=== PATIENT | female | born 2000 | race Caucasian/White ===

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

== ENCOUNTER 2019-07-18 19:25 | Emergency (ER) | payer MEDICAID ==
--- NOTE | 2019-07-18 20:23 | EDM.PDOC ---
ED HPI GENERAL MEDICAL PROBLEM - General Chief Complaint: [employer] Problem Stated Complaint: 16wks pg vaginal bleeding Time Seen by Provider: 07/18/19 19:50 Source of Information: Reports: Patient, RN Notes Reviewed History Limitations: Reports: No Limitations - History of Present Illness INITIAL COMMENTS - FREE TEXT/NARRATIVE: Patient is a 18-year-old female who presents to the ED for the evaluation of vaginal bleeding. Patient notes that she is 16 weeks , she is a . Her [employer] is Dr. Cervantes. Patient notes that she had some light vaginal bleeding starting yesterday morning, she states that she wear very light pad for this. The bleeding seemed to stop the day, so she took the pad off, she states that she went to the bathroom again, she had a little bit more blood with some lumpy type material with it. Patient notes she is having some bilateral flank type pain, and upper rib cage pain. Patient does have chronic low back pain due to scoliosis, and she does not believe this is worse. She does note some mild pelvic cramping. She did call an OB nurse, and they directed her to come to the ER to check be checked out, patient notes that her blood type is O-. She notes she has had frequent UTIs in the past, and denies any dysuria, frequency or urgency. Middle Abdomen Pain Score (Numeric/FACES): 6 - Related Data Allergies Allergy/AdvReac Type Severity Reaction Status Date / Time lavender (Lavandula Allergy Swelling Verified 03/29/18 18:23 angustifolia) Home Meds: Home Meds Mv-Min/Iron/Folic/Calcium/Vitk [Women's Daily Formula Tablet] 1 tab PO DAILY [History] PNV95/Ferrous Fumarate/FA [ Tablet] 1 tab PO DAILY 07/18/19 [History] Past Medical History - Past Health History Medical/Surgical History: Denies Medical/Surgical History Musculoskeletal History: Reports: Other (See Below) Other Musculoskeletal History: scoliosis Psychiatric History: Reports: Anxiety, Depression Social & Family History - Tobacco Use Smoking Status *Q: Current Every Day Smoker Years of Tobacco use: 2 Packs/Tins Daily: 0.1 - Caffeine Use Caffeine Use: Reports: Coffee, Soda, Tea - Recreational Drug Use Recreational Drug Use: No - Living Situation & Occupation Living situation: Reports: Single, Alone Occupation: Student ([employer], part-time) ED ROS GENERAL - Review of Systems Review Of Systems: See Below Constitutional: Denies: Fever, Chills HEENT: Reports: No Symptoms Respiratory: Denies: Shortness of Breath Cardiovascular: Denies: Chest Pain Endocrine: Reports: No Symptoms GI/Abdominal: Reports: Abdominal Pain (bilateral flank pain, low pelvic pain). Denies: Constipation, Diarrhea, Nausea, Vomiting : Reports: Flank Pain (bilateral), Other (vaginal bleeding). Denies: Dysuria , Frequency, Urgency Musculoskeletal: Reports: Back Pain (chronic lower back pain) Skin: Reports: No Symptoms Neurological: Reports: No Symptoms Psychiatric: Reports: No Symptoms Hematologic/Lymphatic: Reports: No Symptoms Immunologic: Reports: No Symptoms ED EXAM - Physical Exam Exam: See Below Exam Limited By: No Limitations General Appearance: Alert, WD/WN, No Apparent Distress Head: Atraumatic, Normocephalic Neck: Normal Inspection Respiratory/Chest: No Respiratory Distress, Lungs Clear, Normal Breath Sounds, No Accessory Muscle Use, Chest Non-Tender Cardiovascular: Normal Peripheral Pulses, Regular Rate, Rhythm, No Murmur GI/Abdominal Exam: Normal Bowel Sounds, Soft, Non-Tender, No Distention, No Mass (Female) Exam: Normal Bimanual Exam, Normal External Exam, Normal Speculum Exam, Vaginal Discharge (dark brown slightly clumpy discharge noted). No: Cervical Dilatation, Cervix Motion Tenderness, Uterine Tenderness Heart Tones: Not [place] (checked with doppler, could not appreciate heart tones.) Movement: Not Appreciated Extremities: Normal Inspection, Normal Capillary Refill Neurological: Alert, Oriented, Normal Cognition, No Motor/Sensory Deficits Psychiatric: Normal Affect, Normal Mood Skin Exam: Warm, Dry, Intact, Normal Color, No Rash Course - Vital Signs Last Recorded V/S: Last Vital Signs Temp 97.8 F 07/18/19 19:49 Pulse 69 07/18/19 19:49 Resp 20 07/18/19 19:49 BP 107/62 07/18/19 19:49 Pulse Ox 99 07/18/19 19:49 - Orders/Labs/Meds Orders: Active Orders 24 hr Category Date Time Status OB Transvaginal [US] Stat Exams 07/18/19 20:11 Taken Labs: Laboratory Tests 07/18/19 07/18/19 Range/Units 21:15 22:25 Urine Color Yellow (Yellow) Urine Appearance Clear (Clear) Urine pH 7.5 (5.0-8.0) Ur Specific [place] 1.020 (1.005-1.030) Urine Protein Negative (Negative) Urine Glucose (UA) Negative (Negative) Urine Ketones Negative (Negative) Urine Occult Blood Trace-intact H (Negative) Urine Nitrite Negative (Negative) Urine Bilirubin Negative (Negative) Urine Urobilinogen 0.2 (0.2-1.0) Ur Leukocyte Esterase Negative (Negative) Urine RBC 0-5 (0-5) /hpf Urine WBC 0-5 (0-5) /hpf Ur Squamous Epith Cells 0-5 (0-5) /hpf Urine Bacteria Occasional (FEW) /hpf Urine Mucus Not seen (FEW) /hpf Blood Type A POSITIVE Rhogam Indicated No - Re-Assessments/Exams Free Text/Narrative Re-Assessment/Exam: 07/18/19 20:24 Patient presents to the ED for evaluation of vaginal bleeding in . She is 16 weeks , did order ultrasound to check on status of the baby, and a urinalysis to make sure there is no a UTI causing some bleeding. Patient is O-, we will assess the need for RhoGAM should the ultrasound results come unfavorable. 07/18/19 22:09 Patient's ultrasound is done, and demonstrates a single intrauterine embryo, with absent cardiac activity, the estimated gestational age at this ultrasound is 8 weeks 0 days. It appears that the patient has had demise. The patient did have an ultrasound prior to this, that did show heart activity. I did call Dr. Davila, our OB on-call, he recommends the patient has 3 options, await natural passage, do Cytotec, or have a D&C if she is having a lot of bleeding. Since she is not having a lot of bleeding, patient is opting to do the awaiting natural passage. Since the patient stated her blood type was O-, I will order a Rhogam workup, he did recommend full dose Rhogam at this time. I did recommend patient talked with Dr. Cervantes tomorrow, regarding her options further from here. 07/18/19 23:19 Upon the completion of the Rhogam Workup, patient's blood type is actually A+, and not O-. She will not need Rhogam at tonight's visit. Patient did have questions and concerns regarding possible viable without the incidence of a heartbeat, I cannot answer her questions efficiently, directed her to follow up with Dr. Cervantes tomorrow. I stated that because she had a ultrasound with a strong heartbeat previous to this, and now has a ultrasound without a heartbeat, it is more unlikely that there is a viable but again told her to follow-up with Dr. Cervantes for more information. Departure - Departure Time of Disposition: 22:16 Disposition: Home, Self-Care 01 Condition: Fair Clinical Impression: Incomplete - Discharge Information *PRESCRIPTION DRUG MONITORING PROGRAM REVIEWED*: No *COPY OF PRESCRIPTION DRUG MONITORING REPORT IN PATIENT RIGOBERTO: No Instructions: Miscarriage, [id number] Referrals: Gwen Cervantes MD [Primary Care Provider] - Forms: ED Department Discharge Additional Instructions: You were evaluated in the ER [facility] regarding her vaginal bleeding during . Unfortunately it looks as if your baby had no heart rate via ultrasound, and this is consistent with demise at this time. The [employer] on-call was consulted on your case, you have decided to do some watchful waiting and let nature take its course to help pass the tissue. Recommend that you follow up with Dr. Cervantes, regarding further options, if letting nature take it's course is not working for you. You were given a copy of your ultrasound results. Again I'm sorry for your loss, please return to the ED at any time if your bleeding, pelvic cramping, worsen, or if you get dizzy or lightheaded due to the vaginal bleeding. For your information, your blood type is actually A+. You should not need Rhogam at anytime in any in the future. - My Orders Last 24 Hours: My Active Orders 07/18/19 20:11 OB Transvaginal [US] Stat - Assessment/Plan Last 24 Hours: My Active Orders 07/18/19 20:11 OB Transvaginal [US] Stat
--- NOTE | 2019-07-19 06:54 | US ---
First trimester obstetrical ultrasound: Multiple real-time images were obtained transvaginally. Comparison: No prior study for current . Dates: Current ultrasound: SUZY 02/27/20, gestational age 8 weeks 0 days Single intrauterine gestation is seen. Amniotic fluid volume is normal. Embryo is seen but no heart activity is identified. Maternal ovaries are identified. Left ovary shows a slightly complex cyst measuring 2.2 cm. Measurements: [place]-rump length: 1.54 cm - 8 weeks 0 days Impression: 1. Single intrauterine gestation. Dates as noted above. 2. No heart activity is seen which should be visualized at this gestational age. Findings are felt compatible with nonviable . Diagnostic code #5 I agree with preliminary report from [facility], finalized on 07/18/19, 10:36 PM Central Time
== END 2019-07-18 23:24 | disposition home or self-care (01) ==
LOC: JD.ED 19:25
DX: O03.4 Incomplete spontaneous abortion without complication (principal); F17.210 Nicotine dependence, cigarettes, uncomplicated; Z91.048 Other nonmedicinal substance allergy status
CPT/HCPCS: 36415; 76817; 76817-26; 81001; 86900; 86901; 99284-25

== ENCOUNTER 2019-09-10 16:46 | Emergency (ER) | payer MEDICAID ==
[2019-09-10] MEDS ORDERED: Ondansetron 4 MG/2 ML SDV IVPUSH ONE (17:00)
[2019-09-10] MEDS ORDERED: Sodium Chloride 0.9% 1,000 ML IV ONE (17:00)
[2019-09-10] MEDS ORDERED: Morphine 4 MG/ML Syringe IVPUSH ONE (17:00)
--- NOTE | 2019-09-10 17:03 | EDM.PDOC ---
ED HPI GENERAL MEDICAL PROBLEM - General Chief Complaint: Respiratory Problem Stated Complaint: POSS ALLERGIC REACTION Time Seen by Provider: 09/10/19 16:55 Source of Information: Reports: Patient History Limitations: Reports: No Limitations - History of Present Illness INITIAL COMMENTS - FREE TEXT/NARRATIVE: Patient's unfortunate 18-year-old female who presents emergency Department today with complaint of sore throat sinus congestion and abdominal pain and vomiting. Patient reports that 3 days ago she started having sinus congestion and mild sore throat today. Umbilical abdominal pain this morning and throughout the day she started having vomiting episodes noted she was running a fever taken out and the pain is intensified so she presented emergency department for evaluation. Positive nausea positive vomiting no diarrhea positive sore throat positive nasal congestion no cough no shortness of breath Oral/Mouth Pain Score (Numeric/FACES): 7 - Related Data Allergies Allergy/AdvReac Type Severity Reaction Status Date / Time lavender (Lavandula Allergy Swelling Verified 03/29/18 18:23 angustifolia) Home Meds: Home Meds Acetaminophen with Codeine [Tylenol with Codeine #3 Tablet] 1 each PO Q4H PRN # 20 tablet 09/10/19 [Rx] cephALEXin [Keflex] 500 mg PO QID #28 cap 09/10/19 [Rx] Past Medical History - Past Health History Medical/Surgical History: Denies Medical/Surgical History Musculoskeletal History: Reports: Other (See Below) Other Musculoskeletal History: scoliosis Psychiatric History: Reports: Anxiety, Depression Social & Family History - Family History Family Medical History: Noncontributory - Tobacco Use Smoking Status *Q: Current Every Day Smoker Years of Tobacco use: 2 Packs/Tins Daily: 0.5 - Caffeine Use Caffeine Use: Reports: Coffee, Soda, Tea - Recreational Drug Use Recreational Drug Use: No - Living Situation & Occupation Living situation: Reports: Single, Alone 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 Constitutional: Reports: Fever GI/Abdominal: Reports: Abdominal Pain, Nausea, Vomiting. Denies: Decreased Appetite, Difficulty Swallowing, Hematemesis, Hematochezia, Melena ED EXAM, GENERAL - Physical Exam Exam: See Below Exam Limited By: No Limitations General Appearance: Alert, WD/WN, Moderate Distress Ears: Normal External Exam, Normal Canal, Hearing Grossly Normal, Normal TMs Nose: Normal Inspection, Normal Mucosa, No Blood Throat/Mouth: Other (posterior pharyngeal erythema) Head: Atraumatic, Normocephalic Respiratory/Chest: No Respiratory Distress, Lungs Clear, Normal Breath Sounds, No Accessory Muscle Use, Chest Non-Tender Cardiovascular: Normal Peripheral Pulses, Regular Rate, Rhythm, No Edema, No Gallop, No JVD, No Murmur, No Rub GI/Abdominal: Rebound, Tender (Lower quadrant positive psoas positive obturator positive rebound positive tenderness in McBurney's point ) Back Exam: Normal Inspection, Full Range of Motion, NT Extremities: Normal Inspection, Normal Range of Motion, Non-Tender, Normal Capillary Refill, No Pedal Edema Neurological: Alert Skin Exam: Warm, Dry, No Rash Course - Vital Signs Last Recorded V/S: Last Vital Signs Temp 98.7 F 09/10/19 16:53 Pulse 97 09/10/19 16:53 Resp 16 09/10/19 16:53 BP 123/81 09/10/19 16:53 Pulse Ox 97 09/10/19 16:53 - Orders/Labs/Meds Orders: Active Orders 24 hr Category Date Time Status Abdomen Pelvis w Cont [CT] Stat Exams 09/10/19 17:40 Taken CULTURE STREP A CONFIRMATION [RM] Stat Lab 09/10/19 17:11 Results STREP SCRN A RAPID W CULT CONF [RM] Stat Lab 09/10/19 17:11 Results UA RFX ABDOULAYE AND CULT IF INDIC [URIN] Stat Lab 09/10/19 17:00 Ordered Sodium Chloride 0.9% [Saline Flush] Med 09/10/19 17:00 Active 10 ml FLUSH ASDIRECTED PRN cefTRIAXone [Rocephin] 1 gm Med 09/10/19 20:50 Ordered Sodium Chloride 0.9% [Normal Saline] 100 ml IV ONETIME Saline Lock Insert [OM.PC] Stat Oth 09/10/19 17:00 Ordered Medication Orders Ceftriaxone Sodium 1 gm/ (Sodium Chloride) 100 mls @ 200 mls/hr IV ONETIME ONE Stop: 09/10/19 21:19 Sodium Chloride (Saline Flush) 10 ml FLUSH ASDIRECTED PRN PRN Reason: Keep Vein Open Last Admin: 09/10/19 19:54 Dose: 10 ml Admin: 09/10/19 17:12 Dose: 10 ml Labs: Laboratory Tests 09/10/19 09/10/19 09/10/19 Range/Units 17:10 17:10 17:10 WBC 16.09 H (3.98-10.04) K/mm3 RBC 4.76 (3.98-5.22) M/mm3 Hgb 14.0 (11.2-15.7) gm/dl Hct 40.5 (34.1-44.9) % MCV 85.1 (79.4-94.8) fl MCH 29.4 (25.6-32.2) pg MCHC 34.6 (32.2-35.5) g/dl RDW Std Deviation 38.3 (36.4-46.3) fL Plt Count 272 (182-369) K/mm3 MPV 9.7 (9.4-12.3) fl Neut % (Auto) 81.2 H (34.0-71.1) % Lymph % (Auto) 9.9 L (19.3-51.7) % Woodward % (Auto) 8.4 (4.7-12.5) % Eos % (Auto) 0.2 L (0.7-5.8) Baso % (Auto) 0.1 (0.1-1.2) % Neut # (Auto) 13.06 H (1.56-6.13) K/mm3 Lymph # (Auto) 1.60 (1.18-3.74) K/mm3 Woodward # (Auto) 1.35 H (0.24-0.36) K/mm3 Eos # (Auto) 0.03 L (0.04-0.36) K/mm3 Baso # (Auto) 0.02 (0.01-0.08) K/mm3 Manual Slide Review Abnormal smear Sodium 136 (136-145) mEq/L Potassium 3.9 (3.5-5.1) mEq/L Chloride 103 (98-107) mEq/L Carbon Dioxide 23 (21-32) mEq/L Anion Gap 13.9 (5-15) BUN 7 (7-18) mg/dL Creatinine 0.6 (0.55-1.02) mg/dL Est Cr Clr Drug Dosing 107.99 mL/min Estimated GFR (MDRD) > 60 (>60) mL/min BUN/Creatinine Ratio 11.7 L (14-18) Glucose 101 (74-106) mg/dL Calcium 9.2 (8.5-10.1) mg/dL Total Bilirubin 0.6 (0.2-1.0) mg/dL AST 13 L (15-37) U/L ALT 22 (14-59) U/L Alkaline Phosphatase 96 (46-116) U/L Total Protein 8.0 (6.4-8.2) g/dl Albumin 4.2 (3.4-5.0) g/dl Globulin 3.8 gm/dL Albumin/Globulin Ratio 1.1 (1-2) Lipase 75 (73-393) U/L HCG, Qual Negative (NEGATIVE) Meds: Medications Generic Name Dose Route Start Last Admin Trade Name Freq PRN Reason Stop Dose Admin Ceftriaxone Sodium 1 gm/ 100 mls @ 200 mls/hr 09/10/19 20:50 Sodium Chloride IV 09/10/19 21:19 ONETIME ONE Sodium Chloride 10 ml 09/10/19 17:00 09/10/19 19:54 Saline Flush FLUSH 10 ml ASDIRECTED PRN Administration Keep Vein Open Discontinued Medications Generic Name Dose Route Start Last Admin Trade Name Freq PRN Reason Stop Dose Admin Acetaminophen 650 mg 09/10/19 18:15 09/10/19 18:21 Tylenol PO 09/10/19 18:16 650 mg NOW ONE Administration Diatrizoate Meglum/Diatrizoate Sod 60 ml 09/10/19 18:56 09/10/19 19:54 Gastrografin 37% PO 09/10/19 18:57 60 ml ONETIME ONE Administration Sodium Chloride 1,000 mls @ 1,000 mls/hr 09/10/19 17:00 09/10/19 17:13 Normal Saline IV 09/10/19 17:59 1,000 mls/hr ONETIME ONE Administration Iopamidol 100 ml 09/10/19 18:56 09/10/19 19:54 Isovue-300 (61%) IVPUSH 09/10/19 18:57 100 ml ONETIME ONE Administration Morphine Sulfate 4 mg 09/10/19 17:00 09/10/19 17:13 Morphine IVPUSH 09/10/19 17:01 4 mg ONETIME ONE Administration Ondansetron HCl 4 mg 09/10/19 17:00 09/10/19 17:13 Zofran IVPUSH 09/10/19 17:01 4 mg ONETIME ONE Administration - Re-Assessments/Exams Free Text/Narrative Re-Assessment/Exam: 09/10/19 20:45 CT abdomen and pelvis "impression: Free fluid in the cul-de-sac, a quantity seems above physiologic limits. This is nonspecific." Of note in the body of the CT this radiologist reports "the appendix is seen. It is normal." Free Text/Narrative Re-Assessment/Exam: 09/10/19 20:57 She started having swelling to her left maxilla with tenderness to her left upper first molar we will treat for this outpatient follow-up with dentist Departure - Departure Time of Disposition: 20:57 Disposition: Home, Self-Care 01 Clinical Impression: Pain, dental URI (upper respiratory infection) Qualifiers: URI type: unspecified viral URI Qualified Code(s): J06.9 - Acute upper respiratory infection, unspecified - Discharge Information Prescriptions: Acetaminophen with Codeine [Tylenol with Codeine #3 Tablet] 1 each PO Q4H PRN # 20 tablet PRN Reason: Pain cephALEXin [Keflex] 500 mg PO QID #28 cap Referrals: PCP,None [Primary Care Provider] - Forms: ED Department Discharge Additional Instructions: Home, rest, see dentist TYRELL, return as needed for worsening condition Sepsis Event Note - Evaluation Sepsis Screening Result: No Definite Risk - Focused Exam Vital Signs: Vital Signs Temp Pulse Resp BP Pulse Ox 09/10/19 16:53 98.7 F 97 16 123/81 97 Date Exam was Performed: 09/10/19 Time Exam was Performed: 20:57 - My Orders Last 24 Hours: My Active Orders 09/10/19 17:00 UA RFX ABDOULAYE AND CULT IF INDIC [URIN] Stat Sodium Chloride 0.9% [Saline Flush] 10 ml FLUSH ASDIRECTED PRN Saline Lock Insert [OM.PC] Stat 09/10/19 17:11 CULTURE STREP A CONFIRMATION [RM] Stat STREP SCRN A RAPID W CULT CONF [RM] Stat 09/10/19 17:40 Abdomen Pelvis w Cont [CT] Stat 09/10/19 20:50 cefTRIAXone [Rocephin] 1 gm Sodium Chloride 0.9% [Normal Saline] 100 ml IV ONETIME - Assessment/Plan Last 24 Hours: My Active Orders 09/10/19 17:00 UA RFX ABDOULAYE AND CULT IF INDIC [URIN] Stat Sodium Chloride 0.9% [Saline Flush] 10 ml FLUSH ASDIRECTED PRN Saline Lock Insert [OM.PC] Stat 09/10/19 17:11 CULTURE STREP A CONFIRMATION [RM] Stat STREP SCRN A RAPID W CULT CONF [RM] Stat 09/10/19 17:40 Abdomen Pelvis w Cont [CT] Stat 09/10/19 20:50 cefTRIAXone [Rocephin] 1 gm Sodium Chloride 0.9% [Normal Saline] 100 ml IV ONETIME
[2019-09-10] MEDS: Sodium Chloride 0.9% 10 ML Syringe FLUSH PRN ×2 (17:12→19:54)
[2019-09-10] MEDS ORDERED: Acetaminophen 325 MG Tab PO ONE (18:15)
[2019-09-10] MEDS ORDERED: Diatrizoate Meglumine/Diatrizoate Sodium 37% 120 ML Bottle PO ONE (18:56)
[2019-09-10] MEDS ORDERED: Iopamidol 612 MG/ML 100 ML Bottle IVPUSH ONE (18:56)
[2019-09-10] MEDS ORDERED: cefTRIAXone 1 GM in Sodium Chloride 0.9% 100 ML IV ONE (20:50)
--- NOTE | 2019-09-12 09:29 | CT ---
CT abdomen and pelvis Technique: Multiple axial sections were obtained from above the dome of the diaphragm inferiorly through the pubic symphysis. Intravenous and oral contrast was utilized. Comparison: Prior abdominal x-ray of 03/28/14. Findings: Visualized lung bases show nothing acute. Liver contains no focal abnormality. Spleen appears within normal limits. Adrenal glands show no nodule. Kidneys show symmetric contrast enhancement without hydronephrosis or mass. Pancreas is within normal limits. Gallbladder contains no calcified gallstones. Aorta shows no aneurysm. No retroperitoneal adenopathy or mesenteric abnormalities are seen. Moderate amount of free fluid is seen within the pelvis. No additional pelvic abnormality is appreciated. Appendix not visualized with certainty. There is a collapsing cyst being seen within the right ovary measuring 1.5 cm. Bone window settings were reviewed which appear within normal limits for the patient's age. Impression: 1. Moderate amount of free fluid within the pelvis. This most likely represents change from a cyst rupture within the right ovary. 2. Other portions of the CT exam of the abdomen and pelvis appear within normal limits. Diagnostic code #3 This report was dictated in [place] Standard Time I agree with preliminary report from [facility], finalized on 09/10/19, 9:18 PM Central Time
== END 2019-09-10 21:15 | disposition home or self-care (01) ==
LOC: JD.ED 16:46
DX: J06.9 Acute upper respiratory infection, unspecified (principal); K08.89 Other specified disorders of teeth and supporting structures; F17.210 Nicotine dependence, cigarettes, uncomplicated; Z91.048 Other nonmedicinal substance allergy status
CPT/HCPCS: 36415; 74177; 80053; 83690; 84703; 85025; 87081; 87430; 87804; 96361; 96374; 96375; 99284; A9270; J2270; J2405; J7030; Q9963; Q9967

== ENCOUNTER 2020-07-11 14:13 | Inpatient (IN) | payer MEDICAID ==
[2020-07-11] MEDS ORDERED: ePHEDrine 50 MG/ML SDV IVPUSH PRN ×2 (16:15→19:47)
[2020-07-11] MEDS ORDERED: fentaNYL 100 MCG/2 ML SDV EPIDUR PRN ×2 (16:15→19:47)
[2020-07-11] MEDS ORDERED: Bupivacaine/fentaNYL/NS 100 ML Bag EPIDUR PRN ×2 (16:15→19:47)
[2020-07-11] MEDS ORDERED: diphenhydrAMINE 50 MG/ML SDV IVPUSH PRN ×2 (16:15→19:47)
--- NOTE | 2020-07-11 17:39 | PCM.LDHP ---
<DanielKylie - Last Filed: 07/11/20 18:36> L&D History of Present Illness - General Date of Service: 07/11/20 Admit Problem/Dx: Patient Status Order with Admit Dx/Problem 07/11/20 14:26 Patient Status [ADT] Routine Admission Diagnosis/Problem Admission Diagnosis/Problem 07/11/20 17:33 Pita is a 19 y.o. 2 para 0 white female who is admitted to labor and delivery in early active labor with spontaneous rupture of membranes and slow leaking of fluids that began around 1320 this afternoon at 38 weeks gestational age with an SUZY of 07/25/2020. 07/11/20 19:00 Source of Information: Patient - History of Present Illness Introduction:: Pita is a 19 y.o. 2 para 0 white female who is admitted to labor and delivery in early active labor with spontaneous rupture of membranes and slow l eaking of fluids that began around 1320 this afternoon at 38 weeks gestational age with an SUZY of 07/25/2020. She is kael mildly. She reports that she noticed some leaking of fluids earlier this afternoon that were clear to pink tinged but did not notice a sudden gush of fluids. She called when she noticed the blood and was told to come in. She reports missing a few appointments. On her last evaluation in clinic on 06/14/2020, she was reporting some mild contractions here and there but cervix was not checked. [employer]ER history: Patient is 2 para 0 female with an SUZY of 07/25/2020 based upon her earliest ultrasound. She had good care up until 34 weeks gestation. She missed her last 2 appointments and was scheduled to be seen tomorrow. She had menarche at approximately 12 years of age. Unknown if cycles were regular. LMP is unknown. She reports no problems in her early part of aside from some nausea and occasional migraines from looking at a comp uter screen. She denies and STIs and has not had a pap smear yet. Fundal height was about 1 cm behind for dates at each of her appointments. Vital signs have been stable throughout her course. Genetic screening was completed and showed possible chance of cystic fibrosis. She had a normal 1 hr glucose tolerance test. She was taking vitamins and iron throughout the . She was given a Tdap vaccination at her 29 week appointment but declined the flu vaccine. Lab testing in shows her blood to be A+ with a negative antibody screen. Her hemoglobin at first visit was 11.9 g/dL and platelets were 245,000. She is rubella immune and RPR was nonreactive. HBsAg and HIV assays were both negative. Second trimester testing showed hemoglobin of 10.7 g/dL and platelets were 273,000. Her 1 hr GTT was 109. Group B strep screen is pending. Timing/Duration: Reports: constant/continuous Location, : Reports: Uterus Quality: Reports: Pressure Severity: Mild - Related Data Allergies/Adverse Reactions: Allergies Allergy/AdvReac Type Severity Reaction Status Date / Time lavender (Lavandula Allergy Swelling Verified 03/29/18 18:23 angustifolia) Past Medical History - Past Health History Medical/Surgical History: Denies Medical/Surgical History Musculoskeletal History: Reports: Other (See Below) Other Musculoskeletal History: scoliosis Psychiatric History: Reports: Anxiety, Depression Social & Family History - Family History Family Medical History: Noncontributory - Caffeine Use Caffeine Use: Reports: Coffee, Soda, Tea - Living Situation & Occupation Living situation: Reports: Single, Alone 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 Denies: Constipation, Diarrhea Genitourinary: Denies: Dysuria, Frequency, Burning, Pain, Urgency, Hematuria Musculoskeletal: Reports: Back Pain Skin: Denies: Pruritis, Rash, Lesions Neurological: Denies: Headache L&D Exam - Exam Exam: See Below - Vital Signs Vital Signs: Last Vital Signs Temp 99.2 F 07/11/20 14:52 Pulse 66 07/11/20 14:52 Resp 18 07/11/20 14:52 BP 116/83 07/11/20 14:52 Pulse Ox 100 07/11/20 14:52 Weight: 53.07 kg - OB Specific Contraction Intensity: Mild Presentation: Vertex - Stein Score Stein Score Cervix Position: Posterior Stein Score Consistency: Medium Stein Score Effacement: >80% Stein Score Dilation: 1-2 cm Stein Score 's Station: -2 Stein Score Total: 6 - Exam General: Alert, Oriented, Cooperative Lungs: Clear to Auscultation, Normal Respiratory Effort Cardiovascular: Regular Rate, Regular Rhythm, Normal S1, Normal S2 GI/Abdominal Exam: Soft, Non-Tender Genitourinary: Normal external exam, Cervical dilitation Extremities: Normal Range of Motion Skin: Warm, Dry, Intact Neurological: Normal Speech Psychiatric: Alert, Normal Affect, Normal Mood - Patient Data Lab Results Last 24 hrs: Laboratory Results - last 24 hr 07/11/20 Range/Units 14:40 Membrane Rupture Positive H Result Diagrams: 07/11/20 16:05 Problem List Initiated/Reviewed/Updated: Yes Orders Last 24hrs: Active Orders 24 hr Category Date Time Status Patient Status [ADT] Routine ADT 07/11/20 14:26 Active Notify Provider [RC] ASDIRECTED Care 07/11/20 16:15 Active Vital Signs [RC] PER UNIT ROUTINE Care 07/11/20 14:26 Active Regular Diet [DIET] Diet 07/11/20 Dinner Active CBC WITH AUTO DIFF [HEME] Stat Lab 07/11/20 16:05 Received CORONAVIRUS COVID-19 CRISSY [MOLEC] Stat Lab 07/11/20 15:45 Received GROUP B STREP BY PCR [MOLEC] Stat Lab 07/11/20 15:45 Received RAPID PLASMA REAGIN,RPR [CHEM] Stat Lab 07/11/20 16:05 Received TYPE AND SCREEN [BBK] Stat Lab 07/11/20 16:05 Received Bupivacaine/fentaNYL/NS [fentaNYL/Bupivacaine/NS 2 MCG- Med 07/11/20 16:15 Active 0.125% 100 ML] 100 ml EPIDUR ASDIRECTED PRN diphenhydrAMINE [Benadryl] Med 07/11/20 16:15 Active 25 mg IVPUSH Q6H PRN ePHEDrine [ePHEDrine sulfate] Med 07/11/20 16:15 Active 5 mg IVPUSH ASDIRECTED PRN fentaNYL [Sublimaze] Med 07/11/20 16:15 Active 100 mcg EPIDUR Q3H PRN Resuscitation Status Routine Resus Stat 07/11/20 14:26 Ordered Medication Orders Diphenhydramine HCl (Benadryl) 25 mg IVPUSH Q6H PRN PRN Reason: pruritis Ephedrine Sulfate (Ephedrine Sulfate) 5 mg IVPUSH ASDIRECTED PRN PRN Reason: Hypotension Fentanyl (Sublimaze) 100 mcg EPIDUR Q3H PRN PRN Reason: Pain Fentanyl/Bupivacaine HCl (Fentanyl/Bupivacaine/Ns 2 Mcg-0.125% 100 Ml) 100 ml EPIDUR ASDIRECTED PRN PRN Reason: Pain Assessment/Plan Comment:: Assessment: 1. 38 week intrauterine , with spontaneous rupture of membranes with early labor and progression of cervical dilation and effacement. 2. GBS screen is pending. 3. Patient will consider epidural if needed but does not wish to have one at this point. 4. Patient is A+ blood type. 5. Patient is rubella immune. 6. Patient plans to breastfeed. Plan: 1. Anticipate normal spontaneous vaginal delivery. 2. Routine labor care. 3. COVID testing, CBC, and RPR upon admission per protocol. 4. Epidural per patient's desire. 5. Support breast feeding plan. <Jeff Hendrickson - Last Filed: 07/11/20 21:01> L&D History of Present Illness - General Admit Problem/Dx: Patient Status Order with Admit Dx/Problem 07/11/20 14:26 Patient Status [ADT] Routine Admission Diagnosis/Problem Admission Diagnosis/Problem Social & Family History - Tobacco Use Tobacco Use Status *Q: Former Tobacco User Tobacco Use Within Last Twelve Months: Cigarettes - Tobacco Core Measures Tobacco Use/Smoking Within Last 30 Days: No Smokeless Tobacco Use in Last 30 Days: No - Alcohol Use Alcohol Use History: No - Recreational Drug Use Recreational Drug Use: No Drug Use in Last 12 Months: No L&D Exam - Vital Signs Vital Signs: Last Vital Signs Temp 37.3 C 07/11/20 14:52 Pulse 66 07/11/20 14:52 Resp 18 07/11/20 14:52 BP 116/83 07/11/20 14:52 Pulse Ox 100 07/11/20 14:52 - OB Specific Contraction Duration (sec): 30-60 Contraction Frequency (min): 2-4 Movement: Active Heart Tones: Present Heart Tones per Min: 130 (+15 x 15 accelerations, no decelerations) Heart Rate (FHR) Variability: Moderate (6-25 bmp) - Patient Data Lab Results Last 24 hrs: Laboratory Results - last 24 hr 1007/11/20 07/11/20 Range/Units 14:40 15:45 16:05 WBC 10.72 H (3.98-10.04) K/mm3 RBC 4.03 (3.98-5.22) M/mm3 Hgb 11.4 (11.2-15.7) gm/dl Hct 35.3 (34.1-44.9) % MCV 87.6 (79.4-94.8) fl MCH 28.3 (25.6-32.2) pg MCHC 32.3 (32.2-35.5) g/dl RDW Std Deviation 40.3 (36.4-46.3) fL Plt Count 320 (182-369) K/mm3 MPV 11.4 (9.4-12.3) fl Neut % (Auto) 72.7 H (34.0-71.1) % Lymph % (Auto) 18.6 L (19.3-51.7) % [place] % (Auto) 7.4 (4.7-12.5) % Eos % (Auto) 0.6 L (0.7-5.8) Baso % (Auto) 0.2 (0.1-1.2) % Neut # (Auto) 7.81 H (1.56-6.13) K/mm3 Lymph # (Auto) 1.99 (1.18-3.74) K/mm3 [place] # (Auto) 0.79 H (0.24-0.36) K/mm3 Eos # (Auto) 0.06 (0.04-0.36) K/mm3 Baso # (Auto) 0.02 (0.01-0.08) K/mm3 Membrane Rupture Positive H RPR (NONREACTIVE) SARS-CoV-2 RNA (CRISSY) Negative (NEGATIVE) Blood Type Gel Antibody Screen 07/11/20 07/11/20 Range/Units 16:05 16:05 WBC (3.98-10.04) K/mm3 RBC (3.98-5.22) M/mm3 Hgb (11.2-15.7) gm/dl Hct (34.1-44.9) % MCV (79.4-94.8) fl MCH (25.6-32.2) pg MCHC (32.2-35.5) g/dl RDW Std Deviation (36.4-46.3) fL Plt Count (182-369) K/mm3 MPV (9.4-12.3) fl Neut % (Auto) (34.0-71.1) % Lymph % (Auto) (19.3-51.7) % [place] % (Auto) (4.7-12.5) % Eos % (Auto) (0.7-5.8) Baso % (Auto) (0.1-1.2) % Neut # (Auto) (1.56-6.13) K/mm3 Lymph # (Auto) (1.18-3.74) K/mm3 [place] # (Auto) (0.24-0.36) K/mm3 Eos # (Auto) (0.04-0.36) K/mm3 Baso # (Auto) (0.01-0.08) K/mm3 Membrane Rupture RPR Non-reactive (NONREACTIVE) SARS-CoV-2 RNA (CRISSY) (NEGATIVE) Blood Type A POSITIVE Gel Antibody Screen Negative Result Diagrams: 07/11/20 16:05 - Problem List (1) 38 weeks gestation of SNOMED Code(s): 88850981 ICD Code: Z3A.38 - 38 WEEKS GESTATION OF Status: Acute Current Visit: Yes (2) Anxiety SNOMED Code(s): 60198868 ICD Code: F41.9 - ANXIETY DISORDER, UNSPECIFIED Status: Acute Current Visit: Yes (3) Depression SNOMED Code(s): 53321727 ICD Code: F32.9 - MAJOR DEPRESSIVE DISORDER, SINGLE EPISODE, UNSPECIFIED Status: Acute Current Visit: Yes Orders Last 24hrs: Active Orders 24 hr Category Date Time Status Patient Status [ADT] Routine ADT 07/11/20 14:26 Active Notify Provider [RC] ASDIRECTED Care 07/11/20 16:15 Active Notify Provider [RC] ASDIRECTED Care 07/11/20 19:47 Active Vital Signs [RC] PER UNIT ROUTINE Care 07/11/20 14:26 Active Regular Diet [DIET] Diet 07/11/20 Dinner Active GROUP B STREP BY PCR [MOLEC] Stat Lab 07/11/20 15:45 Received Bupivacaine/fentaNYL/NS [fentaNYL/Bupivacaine/NS 2 MCG- Med 07/11/20 16:15 Active 0.125% 100 ML] 100 ml EPIDUR ASDIRECTED PRN Bupivacaine/fentaNYL/NS [fentaNYL/Bupivacaine/NS 2 MCG- Med 07/11/20 19:47 Active 0.125% 100 ML] 100 ml EPIDUR ASDIRECTED PRN Lactated Ringers [Ringers, Lactated] 1,000 ml Med 07/11/20 17:45 Active IV ASDIRECTED Oxytocin/Lactated Ringers [Pitocin in LR 10 Units/1,000 Med 07/11/20 17:45 Active ML] 10 unit in 1,000 ml IV TITRATE diphenhydrAMINE [Benadryl] Med 07/11/20 16:15 Active 25 mg IVPUSH Q6H PRN diphenhydrAMINE [Benadryl] Med 07/11/20 19:47 Active 25 mg IVPUSH Q6H PRN ePHEDrine [ePHEDrine sulfate] Med 07/11/20 16:15 Active 5 mg IVPUSH ASDIRECTED PRN ePHEDrine [ePHEDrine sulfate] Med 07/11/20 19:47 Active 5 mg IVPUSH ASDIRECTED PRN fentaNYL [Sublimaze] Med 07/11/20 16:15 Active 100 mcg EPIDUR Q3H PRN fentaNYL [Sublimaze] Med 07/11/20 19:47 Active 100 mcg EPIDUR Q3H PRN Resuscitation Status Routine Resus Stat 07/11/20 14:26 Ordered Medication Orders Diphenhydramine HCl (Benadryl) 25 mg IVPUSH Q6H PRN PRN Reason: pruritis Diphenhydramine HCl (Benadryl) 25 mg IVPUSH Q6H PRN PRN Reason: pruritis Ephedrine Sulfate (Ephedrine Sulfate) 5 mg IVPUSH ASDIRECTED PRN PRN Reason: Hypotension Ephedrine Sulfate (Ephedrine Sulfate) 5 mg IVPUSH ASDIRECTED PRN PRN Reason: Hypotension Fentanyl (Sublimaze) 100 mcg EPIDUR Q3H PRN PRN Reason: Pain Fentanyl (Sublimaze) 100 mcg EPIDUR Q3H PRN PRN Reason: Pain Fentanyl/Bupivacaine HCl (Fentanyl/Bupivacaine/Ns 2 Mcg-0.125% 100 Ml) 100 ml EPIDUR ASDIRECTED PRN PRN Reason: Pain Fentanyl/Bupivacaine HCl (Fentanyl/Bupivacaine/Ns 2 Mcg-0.125% 100 Ml) 100 ml EPIDUR ASDIRECTED PRN PRN Reason: Pain Lactated Ringer's (Ringers, Lactated) 1,000 mls @ 100 mls/hr IV ASDIRECTED DARA Last Admin: 07/11/20 18:21 Dose: 100 mls/hr Documented by: KAILEE Oxytocin/Lactated Ringer's (Pitocin In Lr 10 Units/1,000 Ml) 10 unit in 1,000 mls @ 12 mls/hr IV TITRATE DARA; Protocol Assessment/Plan Comment:: Pita Hilton is a 19-year-old -0-1-0 female at 38 weeks 0 days (SUZY 07/25/2020) with spontaneous rupture of membranes confirmed by AmniSure testing, is complicated by anxiety and depression On exam patient was noted to have a fore bag of the amniotic sac. Artificial rupture membrane over this for bag was completed with [place]. She had a moderate return of clear fluid. Mother and tolerated procedure without difficulty. Refer to observation for spontaneous rupture of membranes Continuous monitoring Place IV and have Lactated Ringer's at 125 ml/hr May have small amounts of regular diet Activity as tolerated May have epidural as desired Plans to breast-feed after delivery Patient is unknown GBS status and a GBS swab was collected on admission. Patient does not have risk factors for GBS infection at this time and is at full-term. We will continue to monitor closely and plan to initiate antibiotic prophylaxis if she reaches 18 hours of rupture of membranes without delivery. This would take place at approximately 7:30 AM on 07/12/2020. Anticipate vaginal delivery unless otherwise indicated I have seen and evaluated the patient with the PA student and agree with her assessment and plan as per the note above. Changes were made as per my assessment and plan above. Jeff Hendrickson MD 9:01 PM 07/11/2020
[2020-07-11] MEDS ORDERED: Lactated Ringers 1,000 ML IV SCH (17:45)
[2020-07-11] MEDS ORDERED: Oxytocin/Lactated Ringers 10 UNIT/1,000 ML BAG IV SCH ×2 (17:45→23:17)
--- NOTE | 2020-07-11 19:55 | PCM.PREANE ---
Preanesthetic Assessment - Procedure Proposed Procedure: fela - Anesthesia/Transfusion/Family Hx Anesthesia History: Prior Anesthesia Without Reaction Family History of Anesthesia Reaction: No Transfusion History: No Prior Transfusion(s) - Review of Systems General: No Symptoms Pulmonary: No Symptoms Cardiovascular: No Symptoms Gastrointestinal: Nausea (intermittently) Neurological: No Symptoms Other: Reports: Depression, Anxiety - Physical Assessment Vital Signs: Last Vital Signs Temp 99.2 F 07/11/20 14:52 Pulse 66 07/11/20 14:52 Resp 18 07/11/20 14:52 BP 116/83 07/11/20 14:52 Pulse Ox 100 07/11/20 14:52 Height: 5 ft 1 in Weight: 53.07 kg ASA Class: 2 Mental Status: Alert & Oriented x3 Airway Class: Mallampati = 1 Dentition: Reports: Normal Dentition Thyro-Mental Finger Breadths: 3 Mouth Opening Finger Breadths: 3 ROM/Head Extension: Full Lungs: Clear to Auscultation, Normal Respiratory Effort Cardiovascular: Regular Rate, Regular Rhythm - Lab Values: Laboratory Last Values WBC 10.72 K/mm3 (3.98-10.04) H 07/11/20 16:05 RBC 4.03 M/mm3 (3.98-5.22) 07/11/20 16:05 Hgb 11.4 gm/dl (11.2-15.7) 07/11/20 16:05 Hct 35.3 % (34.1-44.9) 07/11/20 16:05 MCV 87.6 fl (79.4-94.8) 07/11/20 16:05 MCH 28.3 pg (25.6-32.2) 07/11/20 16:05 MCHC 32.3 g/dl (32.2-35.5) 07/11/20 16:05 RDW Std Deviation 40.3 fL (36.4-46.3) 07/11/20 16:05 Plt Count 320 K/mm3 (182-369) 07/11/20 16:05 MPV 11.4 fl (9.4-12.3) 07/11/20 16:05 Neut % (Auto) 72.7 % (34.0-71.1) H 07/11/20 16:05 Lymph % (Auto) 18.6 % (19.3-51.7) L 07/11/20 16:05 [place] % (Auto) 7.4 % (4.7-12.5) 07/11/20 16:05 Eos % (Auto) 0.6 (0.7-5.8) L 07/11/20 16:05 Baso % (Auto) 0.2 % (0.1-1.2) 07/11/20 16:05 Neut # (Auto) 7.81 K/mm3 (1.56-6.13) H 07/11/20 16:05 Lymph # (Auto) 1.99 K/mm3 (1.18-3.74) 07/11/20 16:05 [place] # (Auto) 0.79 K/mm3 (0.24-0.36) H 07/11/20 16:05 Eos # (Auto) 0.06 K/mm3 (0.04-0.36) 07/11/20 16:05 Baso # (Auto) 0.02 K/mm3 (0.01-0.08) 07/11/20 16:05 Membrane Rupture Positive H 07/11/20 14:40 SARS-CoV-2 RNA (CRISSY) Negative (NEGATIVE) 07/11/20 15:45 Blood Type A POSITIVE 07/11/20 16:05 Gel Antibody Screen Negative 07/11/20 16:05 - Allergies Allergies/Adverse Reactions: Allergies Allergy/AdvReac Type Severity Reaction Status Date / Time lavender (Lavandula Allergy Swelling Verified 03/29/18 18:23 angustifolia) - Blood Blood Available: No - Acknowledgements Anesthesia Type Planned: Epidural Pt an Appropriate Candidate for the Planned Anesthesia: Yes Alternatives and Risks of Anesthesia Discussed w Pt/Guardian: Yes Pt/Guardian Understands and Agrees with Anesthesia Plan: Yes PreAnesthesia Questionnaire - Past Health History Medical/Surgical History: Denies Medical/Surgical History Cardiovascular History: Reports: None Respiratory History: Reports: None Gastrointestinal History: Reports: GERD () : 1 (38 weeks) Para: 0 Musculoskeletal History: Reports: Other (See Below) Other Musculoskeletal History: scoliosis Psychiatric History: Reports: Anxiety, Depression Oncologic (Cancer) History: Reports: None - Past Surgical History HEENT Surgical History: Reports: Oral Surgery - SUBSTANCE USE Tobacco Use Status *Q: Former Tobacco User (quit 9 months ago) Tobacco Use Within Last Twelve Months: Cigarettes Second Hand Smoke Exposure: Yes Days Per Week of Alcohol Use: 0 Recreational Drug Use History: No - HOME MEDS Home Medications: Home Meds Acetaminophen with Codeine [Tylenol with Codeine #3 Tablet] 1 each PO Q4H PRN #20 tablet 09/10/19 [Rx] cephALEXin [Keflex] 500 mg PO QID #28 cap 09/10/19 [Rx] - CURRENT (IN HOUSE) MEDS Current Meds: Current Medications Diphenhydramine HCl (Benadryl) 25 mg IVPUSH Q6H PRN PRN Reason: pruritis Ephedrine Sulfate (Ephedrine Sulfate) 5 mg IVPUSH ASDIRECTED PRN PRN Reason: Hypotension Fentanyl (Sublimaze) 100 mcg EPIDUR Q3H PRN PRN Reason: Pain Fentanyl/Bupivacaine HCl (Fentanyl/Bupivacaine/Ns 2 Mcg-0.125% 100 Ml) 100 ml EPIDUR ASDIRECTED PRN PRN Reason: Pain Lactated Ringer's (Ringers, Lactated) 1,000 mls @ 100 mls/hr IV ASDIRECTED DARA Last Admin: 07/11/20 18:21 Dose: 100 mls/hr Documented by: Oxytocin/Lactated Ringer's (Pitocin In Lr 10 Units/1,000 Ml) 10 unit in 1,000 mls @ 12 mls/hr IV TITRATE DARA; Protocol
--- NOTE | 2020-07-11 21:04 | PCM.PNLD ---
Labor Progress Note - VS & Meds Vital Signs: Last Vital Signs Temp 37.3 C 07/11/20 14:52 Pulse 66 07/11/20 14:52 Resp 18 07/11/20 14:52 BP 116/83 07/11/20 14:52 Pulse Ox 100 07/11/20 14:52 Active Medications: Current Medications Diphenhydramine HCl (Benadryl) 25 mg IVPUSH Q6H PRN PRN Reason: pruritis Diphenhydramine HCl (Benadryl) 25 mg IVPUSH Q6H PRN PRN Reason: pruritis Ephedrine Sulfate (Ephedrine Sulfate) 5 mg IVPUSH ASDIRECTED PRN PRN Reason: Hypotension Ephedrine Sulfate (Ephedrine Sulfate) 5 mg IVPUSH ASDIRECTED PRN PRN Reason: Hypotension Fentanyl (Sublimaze) 100 mcg EPIDUR Q3H PRN PRN Reason: Pain Fentanyl (Sublimaze) 100 mcg EPIDUR Q3H PRN PRN Reason: Pain Fentanyl/Bupivacaine HCl (Fentanyl/Bupivacaine/Ns 2 Mcg-0.125% 100 Ml) 100 ml EPIDUR ASDIRECTED PRN PRN Reason: Pain Fentanyl/Bupivacaine HCl (Fentanyl/Bupivacaine/Ns 2 Mcg-0.125% 100 Ml) 100 ml EPIDUR ASDIRECTED PRN PRN Reason: Pain Lactated Ringer's (Ringers, Lactated) 1,000 mls @ 100 mls/hr IV ASDIRECTED DARA Last Admin: 07/11/20 18:21 Dose: 100 mls/hr Documented by: Oxytocin/Lactated Ringer's (Pitocin In Lr 10 Units/1,000 Ml) 10 unit in 1,000 mls @ 12 mls/hr IV TITRATE DARA; Protocol Last Admin: 07/11/20 20:56 Dose: 2 munits/min, 12 mls/hr Documented by: - Uterine Contractions Contraction Frequency (min): 2-4 Contraction Duration (sec): 30-60 Contraction Intensity: Mild - Monitoring Heart Rate (FHR) Baseline: 135 Heart Rate (FHR) Per Doppler: 135 Heart Rate (FHR) Variability: Moderate (6-25 bmp) Accelerations: Present, 15x15 Decelerations: None Strip Review: Category I - Vaginal Exam Dilation (cm): 1.5 cm Effacement (Percent): 80 Station: -2 Cervical Position: Posterior - Labor Progress (Free Text) Labor Progress: Pita Hilton is a 19-year-old -0-1-0 female at 38 weeks 0 days with s pontaneous rupture membranes Patient making minimal progress at this time despite rupture of membranes of fore bag of amniotic sac Discussed with patient that she is making slow progress at this time. Recommend for augmentation with Pitocin Patient in agreement with plan and Pitocin augmentation started at this time Continue routine vitals Continue monitoring for any signs of intraamniotic infection with GBS unknown status. Continuous monitoring of infant as tolerated Anticipate vaginal delivery unless otherwise indicated Jeff Hendrickson MD 9:04 PM 07/11/2020
[2020-07-11] MEDS ORDERED: Lidocaine 1% 50 ML MDV ONE (22:33)
--- NOTE | 2020-07-11 23:02 | PCM.SN.2 ---
- Free Text/Narrative Note: Delivery note: Pita is a 19 y.o. 2 now para 1011 white female who is admitted to labor and delivery in early active labor with spontaneous rupture of membranes and slow leaking of fluids that began around 1320 this afternoon at 38 weeks gestational age with an SUZY of 07/25/2020. She had a fore bag is broken later on the afternoon/evening of 07/11/2020. Clear fluid resulted. Patient slowly dilated to approximately 2 cm. Heart tones were reassuring. Labor pattern was suboptimal therefore she was started on Pitocin augmentation. She then rapidly dilated from 2 to complete and precipitously delivered a viable, johnson, male infant named Evan at 2229 hrs. on 07/11/2020. The baby delivered in a direct occiput anterior position. There was a nuchal cord which was moderately tight, was not reducible or the baby's head but was reduced over the baby's body as the baby delivered. The baby was placed on his mom's abdomen and was dried. The nose and mouth bulb suctioned. Pitocin was increased to 500 cc an hour to facilitate increase in uterine tone and decrease likelihood of bleeding. The baby weighed 2526 g (5 pounds 9.1 ounces), had Apgars of 8 and 9 having had a length of 19.0 inches. The umbilical cord was allowed to pulsate for approximately 3+ minutes, was then clamped x2 and cut by the patient's mother. Umbilical cord had 3 vessels. Cord blood was obtained. Patient was noted to have a small second-degree laceration which was repaired in a routine fashion with 3-0 Monocryl suture. Lidocaine 1% approximately 7 cc was used to infiltrate the area prior to the repair. The placenta delivered in a Patel presentation at 2229 hrs., appeared intact and complete and was discarded per patient desire. Blood loss was 100 cc. Patient plans to breast-feed. Condition: Good.
[2020-07-11] MEDS ORDERED: Hydrocortisone Acetate 25 MG Supp RECTAL PRN (23:17)
[2020-07-11] MEDS ORDERED: Acetaminophen 325 MG Tab PO PRN (23:17)
[2020-07-11] MEDS ORDERED: Witch Hazel Medicated Pads 40/Jar TOP PRN (23:17)
[2020-07-11] MEDS ORDERED: Ibuprofen 600 MG Tab PO PRN (23:17)
[2020-07-11] MEDS ORDERED: Benzocaine/Menthol 20%-0.5% Spray 56 GM Canister TOP PRN (23:17)
--- NOTE | 2020-07-12 08:10 | PCM.SN.2 ---
- Free Text/Narrative Note: Post Progress Note PPD #1 Subjective: Doing well overall. Ambulating without difficulty but has not gotten up much overnight. Lochia minimal. Voiding without difficulty. Tolerating regular diet without nausea or vomiting. Pain controlled with oral medications. Breast and bottle feeding with minimal difficulty. Objective: Vitals: Vital Signs - 24 hr 07/11/20 07/12/20 14:52 03:54 Temperature 36.3 C Temperature [ 37.3 C Temporal] Pulse, 51 L Peripheral Pulse, 66 Peripheral [ Pulse Oximetry] Respiratory 18 15 Rate Blood Pressure 118/69 Blood Pressure 116/83 [Upper] O2 Sat by Pulse 100 100 Oximetry Physical Exam General: Alert and oriented, no acute distress Lungs: Clear to auscultation bilaterally Heart: Regular rate and rhythm Abdomen: Soft, minimal appropriate tenderness, non-distended, fundus midline, nontender, and 1 fingerbreadth below the umbilicus Extremities: No edema Laboratory Tests 07/11/20 07/11/20 07/11/20 Range/Units 14:40 15:45 16:05 WBC 10.72 H (3.98-10.04) K/mm3 RBC 4.03 (3.98-5.22) M/mm3 Hgb 11.4 (11.2-15.7) gm/dl Hct 35.3 (34.1-44.9) % MCV 87.6 (79.4-94.8) fl MCH 28.3 (25.6-32.2) pg MCHC 32.3 (32.2-35.5) g/dl RDW Std Deviation 40.3 (36.4-46.3) fL Plt Count 320 (182-369) K/mm3 MPV 11.4 (9.4-12.3) fl Neut % (Auto) 72.7 H (34.0-71.1) % Lymph % (Auto) 18.6 L (19.3-51.7) % [place] % (Auto) 7.4 (4.7-12.5) % Eos % (Auto) 0.6 L (0.7-5.8) Baso % (Auto) 0.2 (0.1-1.2) % Neut # (Auto) 7.81 H (1.56-6.13) K/mm3 Lymph # (Auto) 1.99 (1.18-3.74) K/mm3 [place] # (Auto) 0.79 H (0.24-0.36) K/mm3 Eos # (Auto) 0.06 (0.04-0.36) K/mm3 Baso # (Auto) 0.02 (0.01-0.08) K/mm3 Membrane Rupture Positive H RPR (NONREACTIVE) SARS-CoV-2 RNA (CRISSY) Negative (NEGATIVE) Blood Type Gel Antibody Screen 07/11/20 07/11/20 Range/Units 16:05 16:05 WBC (3.98-10.04) K/mm3 RBC (3.98-5.22) M/mm3 Hgb (11.2-15.7) gm/dl Hct (34.1-44.9) % MCV (79.4-94.8) fl MCH (25.6-32.2) pg MCHC (32.2-35.5) g/dl RDW Std Deviation (36.4-46.3) fL Plt Count (182-369) K/mm3 MPV (9.4-12.3) fl Neut % (Auto) (34.0-71.1) % Lymph % (Auto) (19.3-51.7) % [place] % (Auto) (4.7-12.5) % Eos % (Auto) (0.7-5.8) Baso % (Auto) (0.1-1.2) % Neut # (Auto) (1.56-6.13) K/mm3 Lymph # (Auto) (1.18-3.74) K/mm3 [place] # (Auto) (0.24-0.36) K/mm3 Eos # (Auto) (0.04-0.36) K/mm3 Baso # (Auto) (0.01-0.08) K/mm3 Membrane Rupture RPR Non-reactive (NONREACTIVE) SARS-CoV-2 RNA (CRISSY) (NEGATIVE) Blood Type A POSITIVE Gel Antibody Screen Negative ASSESSMENT: 19-year-old female -0-1-1 s/p normal vaginal delivery PPD #1, complicated by anxiety and depression PLAN: Doing well Breast and bottlefeeding with minimal difficulty. Assist as needed Lochia minimal. Continue to monitor for appropriate lochia. Continue routine care Follow-up on GBS swab results Anticipate discharge home tomorrow Jeff Hendrickson MD 8:10 AM 07/12/2020
[2020-07-12] MEDS: Prenatal Multivitamin with Calcium/Folic Acid/Iron Tab PO SCH (22:15)
--- NOTE | 2020-07-13 07:32 | PCM.SN.2 ---
- Free Text/Narrative Note: Post Progress Note PPD #2 Subjective: Doing well overall. Ambulating without difficulty and feels better when she is up and walking around. Lochia minimal and decreasing since yesterday. She reports that she is only having some small amounts of brownish colored discharge mixed with mucus discharge. Voiding without difficulty. Tolerating regular diet without nausea or vomiting. Pain minimal and not requiring any medications at this time. She states that she will have some mild cramping when she is l aying down in bed. Breast, pumping breastmilk and bottle feeding with minimal difficulty. She reports that she is only getting a small amount of breastmilk when she does pump. Objective: Vitals: Vital Signs - 24 hr 07/12/20 07/12/20 07/12/20 07:57 15:22 20:11 Temperature 36.5 C 36.5 C 36.7 C Pulse, 54 L 102 H 69 Peripheral Respiratory 16 16 14 Rate Blood Pressure 112/56 L 130/74 103/63 O2 Sat by Pulse 98 97 99 Oximetry 07/13/20 04:23 Temperature 36.7 C Pulse, 61 Peripheral Respiratory 14 Rate Blood Pressure 122/76 O2 Sat by Pulse 100 Oximetry Physical Exam General: Alert and oriented, no acute distress Lungs: Clear to auscultation bilaterally Heart: Regular rate and rhythm Abdomen: Soft, minimal appropriate tenderness, non-distended, fundus midline, nontender, and 1 fingerbreadth below the umbilicus Extremities: No edema Laboratory Results - last 24 hr 07/11/20 Range/Units 15:45 Group B Strep (PCR) Negative (NEGATIVE) ASSESSMENT: 19-year-old female -0-1-1 s/p normal vaginal delivery PPD #2, complicated by anxiety and depression PLAN: Doing well Breast, pumping breastmilk and bottlefeeding with minimal difficulty. Assist as needed Lochia minimal. Continue to monitor for appropriate lochia. Continue routine care GBS swab returned as negative Discharge home today Jeff Hendrickson MD 8:14 AM 07/13/2020
--- NOTE | 2020-07-13 07:39 | PCM.DCSUM1 ---
Discharge Summary - Hospital Course Free Text/Narrative:: Delivery note: Pita is a 19 y.o. 2 now para 1011 white female who is admitted to labor and delivery in early active labor with spontaneous rupture of membranes and slow leaking of fluids that began around 1320 this afternoon at 38 weeks gestational age with an SUZY of 07/25/2020. She had a fore bag is broken later on the afternoon/evening of 07/11/2020. Clear fluid resulted. Patient slowly dilated to approximately 2 cm. Heart tones were reassuring. Labor pattern was suboptimal therefore she was started on Pitocin augmentation. She then rapidly dilated from 2 to complete and precipitously delivered a viable, johnson, male infant named Evan at 2229 hrs. on 07/11/2020. The baby delivered in a direct occiput anterior position. There was a nuchal cord which was moderately tight, was not reducible or the baby's head but was reduced over the baby's body as the baby delivered. The baby was placed on his mom's abdomen and was dried. The nose and mouth bulb suctioned. Pitocin was increased to 500 cc an hour to facilitate increase in uterine tone and decrease likelihood of bleeding. The baby weighed 2526 g (5 pounds 9.1 ounces), had Apgars of 8 and 9 having had a length of 19.0 inches. The umbilical cord was allowed to pulsate for approximately 3+ minutes, was then clamped x2 and cut by the patient's mother. Umbilical cord had 3 vessels. Cord blood was obtained. Patient was noted to have a small second-degree laceration which was repaired in a routine fashion with 3-0 Monocryl suture. Lidocaine 1% approximately 7 cc was used to infiltrate the area prior to the repair. The placenta delivered in a Patel presentation at 2229 hrs., appeared intact and complete and was discarded per patient desire. Blood loss was 100 cc. Patient plans to breast-feed. Condition: Good. HPI Initial Comments: Delivery note: Pita is a 19 y.o. 2 now para 1011 white female who is admitted to labor and delivery in early active labor with spontaneous rupture of membranes and slow leaking of fluids that began around 1320 this afternoon at 38 weeks gestational age with an SUZY of 07/25/2020. She had a fore bag is broken later on the afternoon/evening of 07/11/2020. Clear fluid resulted. Patient slowly dilated to approximately 2 cm. Heart tones were reassuring. Labor pattern was suboptimal therefore she was started on Pitocin augmentation. She then rapidly dilated from 2 to complete and precipitously delivered a viable, johnson, male infant named Evan at 2229 hrs. on 07/11/2020. The baby delivered in a direct occiput anterior position. There was a nuchal cord which was moderately tight, was not reducible or the baby's head but was reduced over the baby's body as the baby delivered. The baby was placed on his mom's abdomen and was dried. The nose and mouth bulb suctioned. Pitocin was increased to 500 cc an hour to facilitate increase in uterine tone and decrease likelihood of bleeding. The baby weighed 2526 g (5 pounds 9.1 ounces), had Apgars of 8 and 9 having had a length of 19.0 inches. The umbilical cord was allowed to pulsate for approximately 3+ minutes, was then clamped x2 and cut by the patient's mother. Umbilical cord had 3 vessels. Cord blood was obtained. Patient was noted to have a small second-degree laceration which was repaired in a routine fashion with 3-0 Monocryl suture. Lidocaine 1% approximately 7 cc was used to infiltrate the area prior to the repair. The placenta delivered in a Patel presentation at 2229 hrs., appeared intact and complete and was discarded per patient desire. Blood loss was 100 cc. Patient plans to breast-feed. Condition: Good. Brief History: Delivery note: Pita is a 19 y.o. 2 now para 1011 white female who is admitted to labor and delivery in early active labor with spontaneous rupture of membranes and slow leaking of fluids that began around 1320 this afternoon at 38 weeks gestational age with an SUZY of 07/25/2020. She had a fore bag is broken later on the afternoon/evening of 07/11/2020. Clear fluid resulted. Patient slowly dilated to approximately 2 cm. Heart tones were reassuring. Labor pattern was suboptimal therefore she was started on Pitocin augmentation. She then rapidly dilated from 2 to complete and precipitously delivered a viable, johnson, male named Evan at 2229 hrs. on 07/11/2020. The baby delivered in a direct occiput anterior position. There was a nuchal cord which was moderately tight, was not reducible or the baby's head but was reduced over the baby's body as the baby delivered. The baby was placed on his mom's abdomen and was dried. The nose and mouth bulb suctioned. Pitocin was increased to 500 cc an hour to facilitate increase in uterine tone and decrease likelihood of bleeding. The baby weighed 2526 g (5 pounds 9.1 ounces), had Apgars of 8 and 9 having had a length of 19.0 inches. The umbilical cord was allowed to pulsate for approximately 3+ minutes, was then clamped x2 and cut by the patient's mother. Umbilical cord had 3 vessels. Cord blood was obtained. Patient was noted to have a small second-degree laceration which was repaired in a routine fashion with 3-0 Monocryl suture. Lidocaine 1% approximately 7 cc was used to infiltrate the area prior to the repair. The placenta delivered in a Patel presentation at 2229 hrs., appeared intact and complete and was discarded per patient desire. Blood loss was 100 cc. Patient plans to breast-feed. Condition: Good. Diagnosis: Stroke: No - Discharge Data Discharge Date: 07/13/20 Discharge Disposition: Home, Self-Care 01 Condition: Good - Referral to Home Health Primary Care Physician: PCP None - Discharge Diagnosis/Problem(s) (1) 38 weeks gestation of SNOMED Code(s): 09285771 ICD Code: Z3A.38 - 38 WEEKS GESTATION OF Status: Acute Current Visit: Yes (2) Anxiety SNOMED Code(s): 10578921 ICD Code: F41.9 - ANXIETY DISORDER, UNSPECIFIED Status: Acute Current Visit: Yes (3) Depression SNOMED Code(s): 68535135 ICD Code: F32.9 - MAJOR DEPRESSIVE DISORDER, SINGLE EPISODE, UNSPECIFIED Status: Acute Current Visit: Yes (4) Vaginal delivery SNOMED Code(s): 716698102 ICD Code: O80 - ENCOUNTER FOR FULL-TERM UNCOMPLICATED DELIVERY Status: Acute Current Visit: Yes (5) Second degree perineal laceration during delivery SNOMED Code(s): 6776244 ICD Code: O70.1 - SECOND DEGREE PERINEAL LACERATION DURING DELIVERY Status: Acute Current Visit: Yes - Patient Summary/Data Complications: None Consults: None Hospital Course: Pita Hilton was admitted for spontaneous rupture membranes. Spontaneous rupture membranes was confirmed by AmniSure positive test. On admission her cervix was dilated to 0 cm. She was GBS unknown but did not have any risk factors and antibiotics were not started. A GBS swab was collected due to her unknown GBS status. She was noted to have a fore bag on exam and this was artificially ruptured with return of clear fluid. She was given time to change spontaneously but did not make much change and she was given pitocin for augmentation. She quickly progressed to complete and began pushing. On 06/23 she had a normal vaginal delivery of a live male infant at 22:29. Apgars of 8 and 9. Weight of 2526 g (5 pounds 9.1 ounces). Her course was uneventful. Her pain was well controlled and she had minimal lochia. She was ambulating, tolerating a regular diet and voiding normally. She was breast feeding, pumping breastmilk and bottlefeeding with minimal difficulty. She was afebrile and her hematocrit was 35.3 on admission.the GBS swab returned as negative on the afternoon of day #1. She desired to be discharged home on the morning of PPD #2. Her blood type is A+. - Patient Instructions Diet: Regular Diet as Tolerated Activity: Apply Ice, As Tolerated Activity, Other: Nothing in the vagina for 6 weeks Driving: May Drive Today Showering/Bathing: May Shower Notify Provider of: Fever, Increased Pain, Swelling and Redness, Drainage, Nausea and/or Vomiting Other/Special Instructions: Please contact your physician's office if you have heavy vaginal bleeding enough to soak a pad in less than an hour for several hours. Monitor for any signs of an infection in the breasts with severe pain or redness of the breast. - Discharge Plan *PRESCRIPTION DRUG MONITORING PROGRAM REVIEWED*: Not Applicable *COPY OF PRESCRIPTION DRUG MONITORING REPORT IN PATIENT RIGOBERTO: Not Applicable Home Medications: Home Meds Acetaminophen [Tylenol] 650 mg PO Q6H PRN tablet 07/13/20 [Rx] Benzocaine/Menthol [Dermoplast Pain Relief Amelia] 1 spray TOP ASDIRECTED PRN canister 07/13/20 [Rx] Hydrocortisone Acetate [Anucort-HC] 25 mg RECTAL BID PRN supp 07/13/20 [Rx] Ibuprofen [Motrin] 600 mg PO Q6H PRN tablet 07/13/20 [Rx] Vit with Ca/FA/Iron [ Plus Iron] 1 each PO DAILY tablet 1 [Rx] jordon Montana [[place]] 1 pad TOP ASDIRECTED PRN pad 07/13/20 [Rx] Patient Handouts: Care of a Perineal Tear, Care After Vaginal Delivery Referrals: Jeff Hendrickson MD [Physician] - (Follow-up in 2 weeks for routine visit or earlier as needed.) - Discharge Summary/Plan Comment DC Time >30 min.: No - Patient Data Vitals - Most Recent: Last Vital Signs Temp 36.7 C 07/13/20 04:23 Pulse 61 07/13/20 04:23 Resp 14 07/13/20 04:23 BP 122/76 07/13/20 04:23 Pulse Ox 100 07/13/20 04:23 Weight - Most Recent: 53.07 kg Lab Results - Last 24 hrs: Laboratory Results - last 24 hr 07/11/20 Range/Units 15:45 Group B Strep (PCR) Negative (NEGATIVE) Med Orders - Current: Current Medications Acetaminophen (Tylenol) 650 mg PO Q6H PRN PRN Reason: mild pain or fever Benzocaine/Menthol (Dermoplast Pain Relief Amelia) 0 gm TOP ASDIRECTED PRN PRN Reason: Perineal Comfort Measure Last Admin: 07/12/20 00:42 Dose: 1 canister Documented by: Hydrocortisone Acetate (Anucort-Hc) 25 mg RECTAL BID PRN PRN Reason: Hemorrhoid pain Oxytocin/Lactated Ringer's (Pitocin In Lr 10 Units/1,000 Ml) 10 unit in 1,000 mls @ 100 mls/hr IV TITRATE DARA; Protocol Ibuprofen (Motrin) 600 mg PO Q6H PRN PRN Reason: Mild pain or fever Last Admin: 07/12/20 00:42 Dose: 600 mg Documented by: Prenat Multivit/[place]/Iron/Folic Ac ( Plus Iron) 1 each PO DAILY DARA Last Admin: 07/12/20 22:15 Dose: Not Given Documented by: Jordon Montana (Hayley) 1 pad TOP ASDIRECTED PRN PRN Reason: Perineal Comfort Measure Last Admin: 07/12/20 00:42 Dose: 1 container Documented by: Discontinued Medications Diphenhydramine HCl (Benadryl) 25 mg IVPUSH Q6H PRN PRN Reason: pruritis Diphenhydramine HCl (Benadryl) 25 mg IVPUSH Q6H PRN PRN Reason: pruritis Ephedrine Sulfate (Ephedrine Sulfate) 5 mg IVPUSH ASDIRECTED PRN PRN Reason: Hypotension Ephedrine Sulfate (Ephedrine Sulfate) 5 mg IVPUSH ASDIRECTED PRN PRN Reason: Hypotension Fentanyl (Sublimaze) 100 mcg EPIDUR Q3H PRN PRN Reason: Pain Fentanyl (Sublimaze) 100 mcg EPIDUR Q3H PRN PRN Reason: Pain Fentanyl/Bupivacaine HCl (Fentanyl/Bupivacaine/Ns 2 Mcg-0.125% 100 Ml) 100 ml EPIDUR ASDIRECTED PRN PRN Reason: Pain Fentanyl/Bupivacaine HCl (Fentanyl/Bupivacaine/Ns 2 Mcg-0.125% 100 Ml) 100 ml EPIDUR ASDIRECTED PRN PRN Reason: Pain Lactated Ringer's (Ringers, Lactated) 1,000 mls @ 100 mls/hr IV ASDIRECTED DARA Last Admin: 07/11/20 18:21 Dose: 100 mls/hr Documented by: Oxytocin/Lactated Ringer's (Pitocin In Lr 10 Units/1,000 Ml) 10 unit in 1,000 mls @ 12 mls/hr IV TITRATE DARA; Protocol Last Admin: 07/11/20 20:56 Dose: 2 munits/min, 12 mls/hr Documented by: Lidocaine HCl (Xylocaine 1%) Confirm Administered Dose 50 ml .ROUTE .[facility] ONE Stop: 07/11/20 22:34 Last Admin: 07/11/20 22:40 Dose: 50 ml Documented by:
[2020-07-13] MEDS: Prenatal Multivitamin with Calcium/Folic Acid/Iron Tab PO SCH (10:40)
== END 2020-07-13 10:25 | disposition home or self-care (01) | DRG 807 ==
LOC: JD.OBCHECK 14:13 → JD.OB 14:19 → JD.OBCHECK 22:29 → JD.OB 22:53
PROVIDERS: ADMIT Obstetrics & Gynecology; ATTEND Obstetrics & Gynecology
PROC: 10E0XZZ Delivery of Products of Conception, External Approach (ICD-10-PCS; principal; 2020-07-11)
PROC: 0KQM0ZZ Repair Perineum Muscle, Open Approach (ICD-10-PCS; 2020-07-11)
DX: O99.344 Other mental disorders complicating childbirth (principal); Z37.0 Single live birth; O62.3 Precipitate labor; Z3A.38 38 weeks gestation of pregnancy; O70.1 Second degree perineal laceration during delivery; O69.1XX0 Labor and delivery complicated by cord around neck, with compression, not applicable or unspecified; F41.9 Anxiety disorder, unspecified; F32.9 Major depressive disorder, single episode, unspecified; Z91.09 Other allergy status, other than to drugs and biological substances; Z20.828 Contact with and (suspected) exposure to other viral communicable diseases
CPT/HCPCS: 36415; 59020; 59300; 59409; 84112; 85025; 86592; 86850; 86900; 86901; 87653; A9270-GY; J2001; J2590; J7120; U0002

== ENCOUNTER 2021-06-02 07:57 | Emergency (ER) | payer MEDICAID, OTHER ==
--- NOTE | 2021-06-02 09:00 | EDM.PDOC ---
ED HPI GENERAL MEDICAL PROBLEM - General Chief Complaint: ENT Problem Stated Complaint: DENTAL COMPLAINT Time Seen by Provider: 06/02/21 08:59 - History of Present Illness INITIAL COMMENTS - FREE TEXT/NARRATIVE: 20-year-old female presents the emergency room with dental pain. Patient has an appointment with her dentist in 2 weeks however cannot get in any sooner than this. She is got her right rear lower molar is having some decay now she is getting swelling in this area and starting to get some swelling at the side of her jaw. She is use Tylenol and ibuprofen with limited success. Patient denies fevers or chills she is not have any breathing difficulties or shortness of breath. Oral/Mouth Pain Score (Numeric/FACES): 9 - Related Data Allergies Allergy/AdvReac Type Severity Reaction Status Date / Time lavender (Lavandula Allergy Severe Swelling Verified 06/02/21 08:16 angustifolia) Mosquito Allergy Severe Swelling Uncoded 06/02/21 08:16 Home Meds: Home Meds Amoxicillin/Potassium Clav [Augmentin 875-125 Tablet] 1 each PO BID #20 tablet 06/02/21 [Rx] Hydrocodone/Acetaminophen [HYDROcodone-Acetaminophen 5-325 MG] 1 each PO Q6H PRN #14 tab 06/02/21 [Rx] Past Medical History - Past Health History Medical/Surgical History: Denies Medical/Surgical History HEENT History: Reports: None Cardiovascular History: Reports: None Respiratory History: Reports: None Gastrointestinal History: Reports: GERD 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: Musculoskeletal History: Reports: Other (See Below) Other Musculoskeletal History: scoliosis Psychiatric History: Reports: Anxiety, Depression Oncologic (Cancer) History: Reports: None - Infectious Disease History Infectious Disease History: Reports: None - Past Surgical History HEENT Surgical History: Reports: Oral Surgery Social & Family History - Family History Family Medical History: No Pertinent Family History HEENT: Reports: None - Tobacco Use Tobacco Use Status *Q: Current Every Day Tobacco User Years of Tobacco use: 3 Packs/Tins Daily: 0.5 - Caffeine Use Caffeine Use: Reports: Coffee - Recreational Drug Use Recreational Drug Use: No - Living Situation & Occupation Living situation: Reports: Single, Alone 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, 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) ED ROS ENT - Review of Systems Review Of Systems: See Below Constitutional: Reports: No Symptoms HEENT: Reports: Dental Pain Respiratory: Reports: No Symptoms Cardiovascular: Reports: No Symptoms GI/Abdominal: Reports: No Symptoms ED EXAM, ENT - Physical Exam Exam: See Below Exam Limited By: No Limitations General Appearance: Alert, No Apparent Distress Eye Exam: Bilateral Eye: Normal Inspection Ears: Normal External Exam, Normal Canal, Hearing Grossly Normal, Normal TMs Nose: Normal Inspection, Normal Mucousa, No Blood Mouth/Throat: Normal Inspection, Normal Lips, Normal Oropharynx, Other (Right rear lower molar has some decay gumline is erythematous no obvious drainage) Head: Atraumatic, Other (Patient has swelling at the right lateral jaw just anterior to the angle. She has no jaw tenderness with palpation she is got a little bit of tenderness over the swelling however there is no redness or warmth appreciated with this. No areas of fluctuation noted ) Neck: Normal Inspection, Supple, Non-Tender, Full Range of Motion, Lymphadenopathy (R) (Right upper anterior), Other (Outpatient under the right jaw is normal other than that lymph node previously discussed). No: Lymphadenopathy (L) Cardiovascular: Regular Rate, Rhythm, No Edema, No Murmur GI/Abdominal: Normal Bowel Sounds, Soft, Non-Tender Back: Normal Inspection, Full Range of Motion. No: CVA Tenderness (L), CVA Tenderness (R) Course - Vital Signs Last Recorded V/S: Last Vital Signs Temp 35.9 C L 06/02/21 08:14 Pulse 57 L 06/02/21 08:14 Resp 16 06/02/21 08:14 BP 132/84 06/02/21 08:14 Pulse Ox 97 06/02/21 08:14 Departure - Departure Time of Disposition: 09:11 Disposition: Admitted As Inpatient 65 Clinical Impression: Pain, dental - Discharge Information Referrals: PCP,None [Primary Care Provider] - Forms: ED Department Discharge Additional Instructions: Return to the emergency room with any questions problems or worsening symptoms return immediately if you start running fevers or develop any breathing difficulties. You have been started on Augmentin this is a antibiotic take 1 twice daily until all gone. You have also been started on hydrocodone take 1 every 6 hours only if absolutely necessary. Allow 12 hours after using this medication before driving or returning to work, as it can cause sedation and altered judgment. Each pill contains 325 mg of Tylenol. You may use regular Tylenol to help with the pain but do not exceed 4000 mg in a 24-hour. You may also use ibuprofen or naproxen either of these is oftentimes effective with this type of pain. Discussed the situation with your dentist see if you can get in any sooner if he cannot get on the phone and try and find a dentist even if in [place] and see if they can get you in sooner. Sepsis Event Note (ED) - Evaluation Sepsis Screening Result: No Definite Risk - Focused Exam Vital Signs: Vital Signs Temp Pulse Resp BP Pulse Ox 06/02/21 08:14 35.9 C L 57 L 16 132/84 97
== END 2021-06-02 09:25 | disposition home or self-care (01) ==
LOC: JD.ED 07:57
DX: K08.89 Other specified disorders of teeth and supporting structures (principal); Z91.09 Other allergy status, other than to drugs and biological substances; Z88.8 Allergy status to other drugs, medicaments and biological substances; Z72.0 Tobacco use
CPT/HCPCS: 99282; 99283

== ENCOUNTER 2021-10-15 23:50 | Emergency (ER) | payer OTHER ==
[2021-10-16] MEDS ORDERED: Sodium Chloride 0.9% 10 ML Syringe FLUSH PRN (00:28)
[2021-10-16] MEDS ORDERED: HYDROmorphone 1 MG/ML Syringe IVPUSH ONE (00:28)
[2021-10-16] MEDS ORDERED: Ketorolac 30 MG/ML SDV IVPUSH ONE (00:29)
[2021-10-16] MEDS ORDERED: cefTRIAXone 1 GM in Sodium Chloride 0.9% 100 ML IV ONE (00:29)
== END 2021-10-16 01:56 | disposition home or self-care (01) ==
LOC: JD.ED 23:50
DX: K04.7 Periapical abscess without sinus (principal); I25.2 Old myocardial infarction; Z72.0 Tobacco use; Z91.048 Other nonmedicinal substance allergy status; Z91.038 Other insect allergy status; Z98.890 Other specified postprocedural states
CPT/HCPCS: 96365; 96375; 99283; J0696; J1170; J1885

== ENCOUNTER 2021-12-31 15:02 | Emergency (ER) | payer MEDICAID | END 2021-12-31 18:05 | disposition home or self-care (01) | LOC: JD.ED 15:02 | DX: O20.9 Hemorrhage in early pregnancy, unspecified (principal); O23.11 Infections of bladder in pregnancy, first trimester; I25.2 Old myocardial infarction; K21.9 Gastro-esophageal reflux disease without esophagitis; Z91.048 Other nonmedicinal substance allergy status; Z88.8 Allergy status to other drugs, medicaments and biological substances; Z72.0 Tobacco use; Z3A.01 Less than 8 weeks gestation of pregnancy | CPT/HCPCS: 36415; 76817; 76817-26; 80053; 81001; 82150; 84702; 85025; 86140; 86850; 86900; 86901; 87086; 99284-25 ==

== ENCOUNTER 2022-08-19 22:34 | Inpatient (IN) | payer MEDICAID, OTHER ==
[2022-08-19] MEDS ORDERED: Oxytocin/Lactated Ringers 10 UNIT/1,000 ML BAG IV ONE (23:04)
[2022-08-19] MEDS ORDERED: Ondansetron 4 MG/2 ML SDV IVPUSH PRN (23:07)
[2022-08-19] MEDS ORDERED: Nalbuphine HCl 10 MG/ 1ML Amp IVPUSH PRN (23:07)
[2022-08-19] MEDS ORDERED: Sodium Chloride 0.9% 10 ML Syringe FLUSH PRN (23:07)
[2022-08-19] MEDS ORDERED: Lactated Ringers 1,000 ML IV SCH (23:15)
[2022-08-20] MEDS ORDERED: Benzocaine/Menthol 20%-0.5% Spray 78 GM Cannister TOP PRN (00:26)
[2022-08-20] MEDS ORDERED: Ibuprofen 600 MG Tab PO PRN (00:26)
[2022-08-20] MEDS ORDERED: Magnesium Hydroxide 400 MG/5 ML Susp 30 ML Cup PO PRN (00:26)
[2022-08-20] MEDS ORDERED: Acetaminophen 325 MG Tab PO PRN (00:26)
[2022-08-20] MEDS ORDERED: Witch Hazel Medicated Pads 40/Jar TOP PRN (00:26)
[2022-08-20] MEDS ORDERED: Hydrocortisone Acetate 25 MG Supp RECTAL PRN (00:26)
[2022-08-20] MEDS ORDERED: Oxytocin/Lactated Ringers 10 UNIT/1,000 ML BAG IV SCH (00:26)
[2022-08-20] MEDS ORDERED: Docusate Sodium 100 MG Cap PO PRN (00:26)
[2022-08-20] MEDS ORDERED: Sodium Chloride 0.9% 10 ML Syringe FLUSH SCH (09:00)
[2022-08-20] MEDS: Prenatal Multivitamin with Calcium/Folic Acid/Iron Tab PO SCH (20:01)
[2022-08-21] MEDS: FLUoxetine 10 MG Cap PO SCH ×2 (00:16→09:36)
[2022-08-21] MEDS: Prenatal Multivitamin with Calcium/Folic Acid/Iron Tab PO SCH (09:35)
== END 2022-08-21 10:45 | disposition home or self-care (01) | DRG 807 ==
LOC: JD.OBCHECK 22:34 → JD.OB 22:35 → JD.OBCHECK 23:08 → JD.OB 23:09 → OBSVTOIN 23:48 → JD.OB 23:49
PROVIDERS: ADMIT Obstetrics & Gynecology; ATTEND Obstetrics & Gynecology
PROC: 10907ZC Drainage of Amniotic Fluid, Therapeutic from Products of Conception, Via Natural or Artificial Opening (ICD-10-PCS; principal; 2022-08-19)
PROC: 10E0XZZ Delivery of Products of Conception, External Approach (ICD-10-PCS; 2022-08-19)
DX: O99.334 Smoking (tobacco) complicating childbirth (principal); Z37.0 Single live birth; F17.210 Nicotine dependence, cigarettes, uncomplicated; O99.344 Other mental disorders complicating childbirth; F32.A Depression, unspecified; F41.9 Anxiety disorder, unspecified; O70.0 First degree perineal laceration during delivery; Z3A.39 39 weeks gestation of pregnancy; Z88.5 Allergy status to narcotic agent; Z91.040 Latex allergy status; Z91.09 Other allergy status, other than to drugs and biological substances; Z88.8 Allergy status to other drugs, medicaments and biological substances; I25.2 Old myocardial infarction
CPT/HCPCS: 36415; 59025; 59409; 85025; 86592; 86850; 86900; 86901; A9270-GY; J2590

== ENCOUNTER 2024-02-09 18:13 | Emergency (ER) | payer MEDICAID, OTHER | END 2024-02-09 19:52 | disposition home or self-care (01) | LOC: JD.ED 18:13 | DX: O99.891 Other specified diseases and conditions complicating pregnancy (principal); M54.50 Low back pain, unspecified; R10.32 Left lower quadrant pain; I25.2 Old myocardial infarction; Z3A.01 Less than 8 weeks gestation of pregnancy; Z79.899 Other long term (current) drug therapy; Z88.5 Allergy status to narcotic agent; Z88.8 Allergy status to other drugs, medicaments and biological substances; Z91.048 Other nonmedicinal substance allergy status | CPT/HCPCS: 36415; 76817; 76817-26; 84702; 99283; 99284 ==

== ENCOUNTER 2024-04-22 09:47 | Emergency (ER) | payer OTHER ==
[2024-04-22 10:50] LABS: APPEARANCE,URINE CLEAR (Clear); BILIRUBIN,URINE NEGATIVE (Negative); COLOR,URINE YELLOW (Yellow); GLUCOSE,URINE NEGATIVE (Negative); KETONES,URINE 2+ (Negative); LEUKOCYTE ESTERASE,URINE NEGATIVE (Negative); NITRITE,URINE NEGATIVE (Negative); OCCULT BLOOD,URINE NEGATIVE (Negative); PROTEIN,URINE TRACE (Negative)
[2024-04-22 10:53] LABS: BASOPHILS PERCENT AUTO 0.5 % (0.0-1.0); EOSINOPHILS ABSOLUTE AUTO 0.1 K/mm3 (0.0-0.4); EOSINOPHILS PERCENT AUTO 0.9 % (0.0-6.0); HEMATOCRIT 29.6 % (37.0-47.0); IMMATURE GRAN ABSOLUTE AUTO 0.06 K/mm3 (0.00-0.05); IMMATURE GRAN PERCENT AUTO 0.7 % (0.0-0.4); LYMPHOCYTES ABSOLUTE AUTO 2.1 K/mm3 (1.0-4.8); LYMPHOCYTES PERCENT AUTO 25.7 % (24.0-44.0); MEAN CORPUSCULAR HEMOGLOBIN 29.9 pg (28.0-32.0); MEAN CORPUSCULAR HGB CONC 34.1 g/dl (32.0-36.0); MEAN CORPUSCULAR VOLUME 87.6 fl (83.0-99.0); MEAN PLATELET VOLUME 9.2 fl (9.4-12.3); MONOCYTES ABSOLUTE AUTO 0.6 K/mm3 (0.0-0.8); MONOCYTES PERCENT AUTO 7.6 % (0.0-8.0); NEUTROPHILS ABSOLUTE AUTO 5.2 K/mm3 (1.8-7.7); NEUTROPHILS PERCENT AUTO 64.6 % (41.0-71.0); PLATELET COUNT,PLT 241 K/mm3 (150-400); RED BLOOD CELL COUNT 3.38 M/mm3 (4.10-5.30); WHITE BLOOD CELL COUNT,WBC 8.01 K/mm3 (3.9-11.3)
[2024-04-22 10:57] LABS: HEMOGLOBIN 10.1 gm/dl (12.0-16.0)
[2024-04-22] MEDS: Acetaminophen 325 MG Tab PO ONE (11:17)
[2024-04-22 11:39] LABS: A/G RATIO 0.8 (1-2); ALBUMIN 2.8 g/dl (3.4-5.0); ANION GAP 13.4 (5-15); BILIRUBIN TOTAL 0.4 mg/dL (0.2-1.0); CALCIUM 8.3 mg/dL (8.5-10.1); CREATININE 0.5 mg/dL (0.55-1.02); EST CRCL DRUG DOSING (CG) 120.51 mL/min; POTASSIUM,K 3.4 mEq/L (3.5-5.1); PROTEIN TOTAL,TP 6.2 g/dl (6.4-8.2)
[2024-04-22 11:43] LABS: BACTERIA,URINE FEW /hpf (FEW); EPITHELIAL CELLS,URINE 0-5 /hpf (0-5); MUCUS,URINE MANY /hpf (FEW); RBC,URINE 0-5 /hpf (0-5); WBC,URINE 0-5 /hpf (0-5)
[2024-04-22 15:21] LABS: C. TRACHOMATIS BY PCR NOT DETECTED; N. GONORRHOEAE BY PCR NOT DETECTED
== END 2024-04-22 15:40 | disposition home or self-care (01) ==
LOC: JD.ED 09:47
DX: O26.892 Other specified pregnancy related conditions, second trimester (principal); O99.332 Smoking (tobacco) complicating pregnancy, second trimester; O99.412 Diseases of the circulatory system complicating pregnancy, second trimester; R10.12 Left upper quadrant pain; R10.11 Right upper quadrant pain; R10.816 Epigastric abdominal tenderness; R10.812 Left upper quadrant abdominal tenderness; R10.814 Left lower quadrant abdominal tenderness; F17.210 Nicotine dependence, cigarettes, uncomplicated; I25.2 Old myocardial infarction; Z86.16 Personal history of COVID-19; Z79.82 Long term (current) use of aspirin; Z88.5 Allergy status to narcotic agent; Z91.040 Latex allergy status; Z91.030 Bee allergy status; Z91.048 Other nonmedicinal substance allergy status; Z3A.16 16 weeks gestation of pregnancy
CPT/HCPCS: 0352U; 36415; 76815; 80053; 81001; 83690; 84702; 85025; 87491; 87591; 99284; A9270